=== PATIENT | female | born 1995 | race Caucasian/White ===

== ENCOUNTER 2019-09-21 09:26 | Emergency (ER) | payer MEDICAID, OTHER ==
[~2019-09-21] VITALS: Ht 162.6 cm; Wt 113.0 kg
[~2019-09-21 09:26] MED LIST: NORG1TAB6 PO
--- NOTE | 2019-09-21 09:40 | NUR ---
VIRTUAL REALITY SPECIALIST: PT TO ROOM FROM TRIAGE VIA WHEELCHAIR, C-COLLAR IN PLACE
[2019-09-21] MEDS ORDERED: MORPHINE SULFATE 4 MG/ML, 1ML IVPush PRN (10:00)
[2019-09-21] MEDS ORDERED: SODIUM CHLORIDE FLUSH 10ML SYR IVF ONE (10:00)
[2019-09-21] MEDS ORDERED: ONDANSETRON ODT 4 MG PO ONE (10:00)
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
[2019-09-21] MEDS ORDERED: MORPHINE SULFATE 4 MG/ML, 1ML ONE (10:09)
[2019-09-21] MEDS ORDERED: ONDANSETRON ODT 4 MG ONE (10:09)
--- NOTE | 2019-09-21 10:14 | NUR ---
PT MEDICATED PER EMAR. PT TOLERATED WELL.
[2019-09-21 10:26] LABS: BASOPHILS # (AUTO) 0.03 x10^3/uL (0-0.1); BASOPHILS % (AUTO) 0 % (0-1); EOSINOPHILS % (AUTO) 1 % (1-7); LYMPHOCYTES # (AUTO) 2.63 x10^3/uL (1-3.4); LYMPHOCYTES % (AUTO) 21 % (22-44); MD NO; MEAN CORPUSCULAR HEMOGLOBIN 28.2 pg (27.0-34.8); MEAN CORPUSCULAR HGB CONC 33.4 g/dL (32.4-35.8); MEAN CORPUSCULAR VOLUME 84.3 fL (80-100); MEAN PLATELET VOLUME 8.4 fL (7.4-10.4); MONOCYTES # (AUTO) 0.33 x10^3/uL (0.2-0.8); MONOCYTES % (AUTO) 3 % (2-9); NEUTROPHILS % (AUTO) 76 % (42-75); PLATELET COUNT 283 x10^3/uL (130-400); RED BLOOD COUNT 5.05 x10^6/uL (3.82-5.3); RED CELL DISTRIBUTION WIDTH 13.7 % (9.6-15.2)
[2019-09-21 10:28] LABS: CHLORIDE 110 mmol/L (98-107)
[2019-09-21 10:31] LABS: ALBUMIN 3.9 g/dL (3.4-5.0); ANION GAP 8 mmol/L (5-15); CALCIUM 8.5 mg/dL (8.5-10.1); INTERNATIONAL NORMALIZED RATIO 0.94 (0.93-1.1)
[2019-09-21 10:42] LABS: ALANINE AMINOTRANSFERASE 32 U/L (12-78); CREATININE 0.72 mg/dL (0.55-1.02)
[2019-09-21 10:44] LABS: ALKALINE PHOSPHATASE 68 U/L (45-117); BILIRUBIN,TOTAL 0.5 mg/dL (0.2-1.0); TOTAL PROTEIN 7.6 g/dL (6.4-8.2)
[2019-09-21] MEDS ORDERED: AMPICILLIN/SULBACTAM 3 GM in SODIUM CHLORIDE 0.9% 100 ML IV ONE (11:00)
[2019-09-21] MEDS ORDERED: DIPH,PERTUSS(ACELL),TET VAC/PF 0.5 ML IM-VACC ONE (11:00)
[2019-09-21 12:02] VITALS: BP 126/59
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
[2019-09-21] MEDS ORDERED: OMNIPAQUE 350 MG/ML, 100ML BOTTLE ONE (12:33)
--- NOTE | 2019-09-21 12:35 | NUR ---
BREAK RN: Patient given discharge instructions and they have confirmed that they understand the instructions. Patient ambulatory with steady gait.
== END 2019-09-21 12:50 | disposition home or self-care (01) ==
LOC: ED 11:27
DX: S30.1XXA Contusion of abdominal wall, initial encounter (principal); M54.2 Cervicalgia; M79.641 Pain in right hand; G43.909 Migraine, unspecified, not intractable, without status migrainosus; V48.5XXA Car driver injured in noncollision transport accident in traffic accident, initial encounter; Y93.89 Activity, other specified; Y92.488 Other paved roadways as the place of occurrence of the external cause; Y99.8 Other external cause status
CPT/HCPCS: 36415; 72125; 72128; 73130; 74177; 80053; 84703; 85025; 85610; 96374; 99285; J2270; Q0162; Q9967